=== PATIENT | female | born 1950 | race Caucasian/White ===

== ENCOUNTER → 2018-02-07 | Outpatient (CLI) | payer OTHER ==
[~2018-02-07] MED LIST: ANAS1TAB PO; CALCIUM PO; CHOL200024 PO; ESOM20CA PO; FISH400C2 PO; IBUP200T64 PO; MULT-516 PO; NASCENT IODINE PO
== END | disposition home or self-care (01) ==
LOC: STAR 09:18
PROVIDERS: ATTEND Obstetrics & Gynecology Female Pelvic Medicine and Reconstructive Surgery
DX: Z01.818 Encounter for other preprocedural examination (principal); I45.10 Unspecified right bundle-branch block; N81.2 Incomplete uterovaginal prolapse; N39.3 Stress incontinence (female) (male); R10.2 Pelvic and perineal pain
CPT/HCPCS: 93005

== ENCOUNTER 2019-05-30 07:35 | Outpatient (CLI) | payer MEDICARE | END 2019-05-30 23:59 | disposition home or self-care (01) | LOC: CFH 07:35 | PROVIDERS: ATTEND Internal Medicine Cardiovascular Disease | DX: Z01.810 Encounter for preprocedural cardiovascular examination (principal); I45.10 Unspecified right bundle-branch block | CPT/HCPCS: 78452; 93017; 93306; A9502; J2785 ==

== ENCOUNTER 2019-11-02 13:31 | Emergency (ER) | payer MEDICARE ==
[~2019-11-02] VITALS: Ht 147.3 cm; Wt 81.0 kg
[~2019-11-02 13:31] MED LIST changes: +ASPI81TA45 PO; +ASTHALIN; +KETO10DR5 EACH EAR; +LEVO25TA4 PO; +OXYC5CAP2 PO; +TROS60CA3 PO; +TURM538C PO; +[UNRECOGNIZED DRUG - REMARK] NAS; +advair
--- NOTE | 2019-11-02 15:16 | NUR ---
PT CAME IN CO OF LEFT SIDED FACIAL DROOP AND WELL NOT BEING ABLE TO CLOSE LEFT EYE. SYMPTOMS STARTED 10/28. REPORTS "DULL ACHING PAIN IN LEFT SIDE OF FACE". ALL OTHER EXTREMETIES ARE STRONG AND SENSATION IS INTACT. CALL LIGHT WITHIN REACH. DAUGHTER IS BEDSIDE
[2019-11-02 16:02] VITALS: BP 103/60
--- NOTE | 2019-11-02 16:04 | NUR ---
Jovita lynch in ED - 11/02/19 at 1604 by CARINA PT IN ROOM RESTING IN BED. ON PHONE WITH FRIEND. NO REQUESTS AT THIS TIME
== END 2019-11-02 16:15 | disposition home or self-care (01) ==
LOC: ED 16:11
DX: G51.0 Bell's palsy (principal)
CPT/HCPCS: 99283